=== PATIENT | female | born 1980 | race African-American/Black ===

== ENCOUNTER 2017-05-15 16:56 | Emergency (ER) | payer BC ==
[2017-05-15] MEDS ORDERED: Ondansetron ODT 4 MG TAB ONE (17:21)
== END 2017-05-15 18:42 | disposition home or self-care (01) ==
LOC: NAV ERS 16:56
DX: J06.9 Acute upper respiratory infection, unspecified (principal); I10 Essential (primary) hypertension; E66.9 Obesity, unspecified; F41.9 Anxiety disorder, unspecified; F32.9 Major depressive disorder, single episode, unspecified; Z79.899 Other long term (current) drug therapy
CPT/HCPCS: 99283; Q0162